=== PATIENT | male | born 1975 | race Caucasian/White ===

== ENCOUNTER 2019-06-27 02:56 | Observation (INO) ==
[2019-06-27] MEDS ORDERED: *HR* LORazepam 2 MG/ML VIAL IVP PRN (06:41)
[2019-06-27 07:43] LABS: Immature Granulocytes % 0.8 % (0-4)
[2019-06-27 07:44] LABS: Magnesium 1.7 mg/dL (1.6-2.6); Phosphorous 3.2 mg/dL (2.7-4.5); White Blood Count 9.2 K/mcL (4.3-11.1)
[2019-06-27 07:45] VITALS: BP 160/109
[2019-06-27 07:45] LABS: Alanine Aminotransferase 12 Units/L (7-52); Albumin 3.9 g/dL (3.5-5.7); Albumin/Globulin Ratio 1.8 (1.1-2.2); Alkaline Phosphatase 79 Units/L (34-104); Aspartate Amino Transferase 16 Units/L (13-39); BUN/Creatinine Ratio 9 (6-26); Basophils % 0.3 %; Bilirubin,Total 0.3 mg/dL (0.3-1.0); Blood Urea Nitrogen 7 mg/dL (6-20); Calcium 9.1 mg/dL (8.6-10.3); Carbon Dioxide 26 mEq/L (23-29); Chloride 107 mEq/L (98-107); Creatine Kinase 317 Units/L (30-223); Eosinophils # 0.1 K/mcL (0.0-0.6); Eosinophils % 0.8 %; Globulin 2.2 g/dL (2.4-3.5); Glucose 121 mg/dL (70-105); Hematocrit 31.7 % (37.5-50.1); Immature Platelets 3.5 % (1.1-6.1); Lymphocytes # 1.2 K/mcL (0.6-4.6); Mean Corpuscular HGB Conc 31.5 g/dL (31.6-35.5); Mean Corpuscular Hemoglobin 26.9 pg (28.0-33.3); Mean Corpuscular Volume 85.2 fL (83.0-100.0); Mean Platelet Volume 9.6 fL (9.4-12.4); Monocytes # 0.7 K/mcL (0.0-1.3); Monocytes % 7.8 %; Neutrophils # 7.1 K/mcL (1.6-8.9); Osmolality,Calculated 291 (280-300); Potassium 3.7 mEq/L (3.5-5.1); Red Blood Count 3.72 M/mcL (4.19-5.50); Segmented Neutrophils % 77.3 %; Sodium 141 mEq/L (136-145); Total Protein 6.1 g/dL (6.4-8.9); eGFR For African Americans > 60 (> 60); eGFR For Non-African Americans > 60 (> 60)
[2019-06-27 08:21] LABS: Anisocytosis 1+ (Not Present); Platelet Count 62 K/mcL (140-400); Platelet Estimate Decreased (Normal)
[2019-06-27] MEDS ORDERED: *HR* LORazepam 0.5 MG TABLET PO PRN (08:25)
[2019-06-27 08:30] LABS: Ethanol < 10 mg/dL (Less than 10)
[2019-06-27] MEDS ORDERED: 0.9 % Sodium Chloride 1,000 ML IVC SCH ×2 (08:30→09:00)
[2019-06-27] MEDS ORDERED: amLODIPine 5 MG TABLET PO SCH (09:00)
[2019-06-27] MEDS ORDERED: Loratadine 10 MG TABLET PO SCH (09:00)
[2019-06-27] MEDS ORDERED: Albuterol 2.5 MG/3 ML NEBULIZER IH SCH (12:00)
[2019-06-27] MEDS ORDERED: rOPINIRole 0.25 MG TABLET PO SCH (19:00)
== END 2019-06-27 12:46 | disposition left against medical advice (07) ==
LOC: 2NNU → SUATTDRO 04:23
PROVIDERS: ADMIT Internal Medicine; ATTEND Internal Medicine

== ENCOUNTER 2020-01-27 13:38 | Inpatient (IN) ==
[2020-01-27] MEDS ORDERED: CeFAZolin Syr 2,000MG/20 ML 2,000 MG/20 ML SYRINGE IVPB ONE (14:19)
[2020-01-27] MEDS ORDERED: Ringers Solution, Lactated 1,000 ML IVC SCH ×2 (14:30→20:36)
[2020-01-27] MEDS ORDERED: Gabapentin 300 MG CAPSULE PO ONE ×2 (14:35→14:45)
[2020-01-27] MEDS ORDERED: *HR* OxyCODONE ER (12 HR) 10 MG TABLET PO ONE ×2 (14:35→14:45)
[2020-01-27] MEDS ORDERED: *HR* OxyCODONE Immed Rel 5 MG TABLET PO PRN (14:39)
[2020-01-27] MEDS ORDERED: Ondansetron 4 MG/2 ML VIAL IVP PRN ×2 (14:39→20:36)
[2020-01-27] MEDS ORDERED: Vancomycin 1,000 MG VIAL ONE (14:45)
[2020-01-27] MEDS ORDERED: Famotidine 20 MG/2 ML VIAL IVP ONE (14:45)
[2020-01-27] MEDS ORDERED: Ethanol\\Acetic Acid\\Na Ace\\Ben 1,000 ML IRRIG.SOLN IR ONE (14:45)
[2020-01-27] MEDS ORDERED: Ropivacaine/PF 0.5% 30 ML VIAL ONE ×2 (16:01→18:08)
[2020-01-27] MEDS ORDERED: ROPIVACAINE/PF/NS 0.25% 1 EACH SYRINGE INTRAART ONE (16:01)
[2020-01-27] MEDS ORDERED: *HR* FentaNYL (PF) 100 MCG/2 ML VIAL ONE (16:06)
[2020-01-27] MEDS ORDERED: *HR* Propofol 200 MG/20 ML VIAL IVP ONE (16:50)
[2020-01-27] MEDS ORDERED: *HR* Succinylcholine 200 MG/10 ML VIAL IVP ONE (16:50)
[2020-01-27] MEDS ORDERED: Lidocaine -MPF 2% 2 ML VIAL ONE (16:50)
[2020-01-27] MEDS ORDERED: Lidocaine -MPF 4% 5 ML AMPUL ONE (16:57)
[2020-01-27] MEDS ORDERED: *HR* Labetalol 20 MG/4 ML SYRINGE IVP ONE (17:28)
[2020-01-27] MEDS ORDERED: Ondansetron 4 MG/2 ML VIAL ONE (17:29)
[2020-01-27] MEDS ORDERED: *HR* Enoxaparin 30 MG/0.3 ML SYRINGE SQ SCH (18:00)
[2020-01-27 18:36] LABS: Hemoglobin 15.4 g/dL (12.9-16.9)
[2020-01-27 18:38] LABS: Hematocrit 48.8 % (37.5-50.1)
[2020-01-27] MEDS ORDERED: Albuterol 2.5 MG/3 ML NEBULIZER ONE (18:53)
[2020-01-27] MEDS: *HR* Labetalol 20 MG/4 ML SYRINGE IVP PRN ×3 (18:54→19:18)
[2020-01-27] MEDS ORDERED: Albuterol 2.5 MG/3 ML NEBULIZER IH ONE (19:00)
[2020-01-27] MEDS: *HR* HYDROmorphone PF 0.5 MG/0.5 ML SYRINGE IVP PRN ×2 (19:29→19:52)
[2020-01-27] MEDS ORDERED: Sennosides 8.6 MG TABLET PO PRN (20:36)
[2020-01-27] MEDS ORDERED: Dextrose Gel 15 GM/37.5 ML TUBE PO PRN ×2 (20:36)
[2020-01-27] MEDS ORDERED: MOM Conc 10 ML UD.LIQ PO PRN (20:36)
[2020-01-27] MEDS ORDERED: D5% in Water 1,000 ML IVC PRN (20:36)
[2020-01-27] MEDS ORDERED: *HR* Dextrose 50 % in Water (Syg) 50 ML SYRINGE IVP PRN (20:36)
[2020-01-27] MEDS ORDERED: rOPINIRole 0.25 MG TABLET PO SCH (20:36)
[2020-01-27] MEDS ORDERED: Insulin LISPRO 300 UNITS/3 ML VIAL SQ SCH (21:00)
[2020-01-27] MEDS: *HR* OxyCODONE Immed Rel 5 MG TABLET PO PRN (22:19)
[2020-01-27] MEDS: Gabapentin 300 MG CAPSULE PO SCH (22:19)
[2020-01-27] MEDS ORDERED: *HR* HYDROmorphone (PF) 1 MG/ML SYRINGE IVP ONE (22:57)
[2020-01-27] MEDS ORDERED: Acetaminophen IV 1,000 MG/100 ML INFUS..BTL IVPB PRN (23:00)
[2020-01-27] MEDS: Insulin LISPRO 300 UNITS/3 ML VIAL SQ SCH (23:52)
[2020-01-28] MEDS: CeFAZolin 2 GM/120 ML BAG IVPB SCH ×2 (00:45→10:31)
[2020-01-28] MEDS: *HR* HYDROcodone/Acet 5/325 mg TABLET PO PRN ×2 (01:54→10:31)
[2020-01-28] MEDS ORDERED: *HR* Enoxaparin 30 MG/0.3 ML SYRINGE SQ SCH (06:00)
[2020-01-28] MEDS: *HR* OxyCODONE Immed Rel 5 MG TABLET PO PRN (06:30)
[2020-01-28 07:25] LABS: Hematocrit 47.9 % (37.5-50.1); Hemoglobin 15.2 g/dL (12.9-16.9)
[2020-01-28 07:36] LABS: BUN/Creatinine Ratio 20 (6-26); Blood Urea Nitrogen 17 mg/dL (6-20); Calcium 8.8 mg/dL (8.6-10.3); Carbon Dioxide 25 mEq/L (23-29); Chloride 99 mEq/L (98-107); Glucose 293 mg/dL (70-105); Osmolality,Calculated 286 (280-300); Potassium 4.7 mEq/L (3.5-5.1); Sodium 132 mEq/L (136-145); eGFR For African Americans > 60 (> 60); eGFR For Non-African Americans > 60 (> 60)
[2020-01-28] MEDS: Gabapentin 300 MG CAPSULE PO SCH (08:08)
[2020-01-28] MEDS: Insulin LISPRO 300 UNITS/3 ML VIAL SQ SCH (08:10)
[2020-01-28] MEDS ORDERED: amLODIPine 5 MG TABLET PO SCH (09:00)
[2020-01-28] MEDS ORDERED: ARIPiprazole 5 MG TABLET PO SCH (09:00)
[2020-01-28 10:43] VITALS: BP 121/86
[2020-01-28 13:27] LABS: Estimated Average Glucose 283 mg/dl
== END 2020-01-28 13:59 | disposition home health service (06) | DRG 483 ==
LOC: SAMDAY 13:38 → 3NENU 20:28 → SAMDAY 01-28 11:57 → 3NENU 01-28 13:58 → 2ANU 02-04 14:55
PROVIDERS: ADMIT Orthopaedic Surgery; ATTEND Orthopaedic Surgery

== ENCOUNTER 2020-03-30 12:01 | Inpatient (IN) ==
[2020-03-30] MEDS ORDERED: 0.9 % Sodium Chloride 1,000 ML IVC ONE ×2 (12:12→13:02)
[2020-03-30] MEDS ORDERED: *HR* HYDROmorphone (PF) 1 MG/ML SYRINGE IVP ONE ×2 (12:19→13:12)
[2020-03-30 12:48] LABS: Basophils # 0.1 K/mcL (0.0-0.2); Basophils % 0.5 %; Hematocrit 43.1 % (37.5-50.1); Hemoglobin 14.7 g/dL (12.9-16.9); Immature Granulocytes % 2.7 % (0-4); Lymphocytes # 1.9 K/mcL (0.6-4.6); Lymphocytes % 12.1 %; Mean Corpuscular HGB Conc 34.1 g/dL (31.6-35.5); Mean Corpuscular Hemoglobin 30.9 pg (28.0-33.3); Mean Corpuscular Volume 90.7 fL (83.0-100.0); Mean Platelet Volume 11.3 fL (9.4-12.4); Monocytes # 0.6 K/mcL (0.0-1.3); Monocytes % 3.6 %; Neutrophils # 12.5 K/mcL (1.6-8.9); Nucleated Red Blood Cells 0.2 /100 WBC (0); Platelet Count 127 K/mcL (140-400); Red Blood Count 4.75 M/mcL (4.19-5.50); Red Cell Distribution Width 15.9 % (11.5-14.5); Segmented Neutrophils % 81.1 %; White Blood Count 15.4 K/mcL (4.3-11.1)
[2020-03-30 13:04] LABS: Bilirubin,Urine Negative (Negative); Blood,Urine Negative (Negative); Clarity,Urine Clear (Clear); Color,Urine Colorless (Yellow); Glucose,Urine (UA) >=1000 mg/dL (Normal); Ketones,Urine Negative (Negative); Leukocyte Esterase,Urine Negative (Negative); Nitrite,Urine Negative (Negative); PH,Urine 6.5 pH Units (5.0-8.0); Protein,Urine Negative (Neg-Trace); RBC,Urine 0-3 per hpf (0-3); Specific Gravity,Urine > 1.030 (1.010-1.025); Squamous Epithelial Cell,Urine Few per hpf (None-Few); Urobilinogen,Urine Normal (Normal); WBC,Urine 0-3 per hpf (0-3)
[2020-03-30 13:09] LABS: Alanine Aminotransferase 21 Units/L (7-52); Albumin 4.3 g/dL (3.5-5.7); Albumin/Globulin Ratio 1.4 (1.1-2.2); Alkaline Phosphatase 189 Units/L (34-104); Aspartate Amino Transferase 16 Units/L (13-39); BUN/Creatinine Ratio 19 (6-26); Bilirubin,Total 0.7 mg/dL (0.3-1.0); Blood Urea Nitrogen 17 mg/dL (6-20); Calcium 9.1 mg/dL (8.6-10.3); Carbon Dioxide 24 mEq/L (23-29); Chloride 85 mEq/L (98-107); Globulin 3.1 g/dL (2.4-3.5); Glucose 683 mg/dL (70-105); Lipase 18 Units/L (11-82); Magnesium 1.8 mg/dL (1.6-2.6); Osmolality,Calculated 292 (280-300); Potassium 3.8 mEq/L (3.5-5.1); Sodium 124 mEq/L (136-145); Total Protein 7.4 g/dL (6.4-8.9); eGFR For African Americans > 60 (> 60); eGFR For Non-African Americans > 60 (> 60)
[2020-03-30] MEDS ORDERED: Insulin Human Regular 10 UNIT in 0.9 % Sodium Chloride 10 ML IV ONE (13:31)
[2020-03-30 14:41] LABS: VBG HCO3 24 mEq/L (21-27); VBG PCO2 36 mmHg (41-51); VBG PH 7.43 pH Units (7.32-7.42); VBG PO2 233 mmHg (25-50)
[2020-03-30] MEDS ORDERED: *HR* Promethazine 25 MG/ML VIAL IVP PRN (14:44)
[2020-03-30] MEDS ORDERED: Naloxone 0.4 MG/ML INJ IVP PRN (14:44)
[2020-03-30] MEDS ORDERED: *HR* HYDROcodone/Acet 5/325 mg TABLET PO PRN (14:44)
[2020-03-30] MEDS ORDERED: Acetaminophen 325 MG TABLET PO PRN (14:44)
[2020-03-30] MEDS ORDERED: D5% in Water 1,000 ML IVC PRN (14:49)
[2020-03-30] MEDS ORDERED: *HR* Dextrose 50 % in Water (Vial) 50 ML VIAL IVP PRN (14:49)
[2020-03-30] MEDS ORDERED: Dextrose Gel 15 GM/37.5 ML TUBE PO PRN ×2 (14:49)
[2020-03-30] MEDS ORDERED: Gadolinium Contrast Agent (WT Based) IV PRN (15:22)
[2020-03-30] MEDS: Insulin LISPRO 300 UNITS/3 ML VIAL SQ SCH ×3 (15:44→23:25)
[2020-03-30 15:46] LABS: BUN/Creatinine Ratio 22 (6-26); Blood Urea Nitrogen 16 mg/dL (6-20); Calcium 8.6 mg/dL (8.6-10.3); Carbon Dioxide 24 mEq/L (23-29); Chloride 94 mEq/L (98-107); Glucose 386 mg/dL (70-105); Osmolality,Calculated 283 (280-300); Potassium 3.9 mEq/L (3.5-5.1); Sodium 128 mEq/L (136-145); eGFR For African Americans > 60 (> 60); eGFR For Non-African Americans > 60 (> 60)
[2020-03-30] MEDS: *HR* OxyCODONE Immed Rel 5 MG TABLET PO PRN ×2 (17:06→23:10)
[2020-03-30] MEDS ORDERED: 0.9 % Sodium Chloride 1,000 ML IVC SCH (19:00)
[2020-03-30] MEDS ORDERED: rOPINIRole 0.25 MG TABLET PO SCH (19:00)
[2020-03-30] MEDS ORDERED: Insulin DETEMIR 100 UNIT/ML X5UNITS SQ SCH (21:00)
[2020-03-31 05:25] LABS: Eosinophils % 0.3 %; Mean Corpuscular HGB Conc 34.2 g/dL (31.6-35.5); Nucleated Red Blood Cells 0.2 /100 WBC (0); Red Cell Distribution Width 16.3 % (11.5-14.5)
[2020-03-31 05:27] LABS: Basophils # 0.1 K/mcL (0.0-0.2); Basophils % 0.5 %; Hematocrit 36.5 % (37.5-50.1); Hemoglobin 12.5 g/dL (12.9-16.9); Immature Granulocytes % 2.9 % (0-4); Immature Platelets 5.7 % (1.1-6.1); Lymphocytes # 2.1 K/mcL (0.6-4.6); Lymphocytes % 18.3 %; Mean Corpuscular Hemoglobin 31.2 pg (28.0-33.3); Mean Platelet Volume 10.6 fL (9.4-12.4); Monocytes # 0.5 K/mcL (0.0-1.3); Monocytes % 4.7 %; Neutrophils # 8.4 K/mcL (1.6-8.9); Red Blood Count 4.01 M/mcL (4.19-5.50); Segmented Neutrophils % 73.3 %; White Blood Count 11.5 K/mcL (4.3-11.1)
[2020-03-31 05:40] LABS: BUN/Creatinine Ratio 35 (6-26); Blood Urea Nitrogen 23 mg/dL (6-20); Calcium 8.3 mg/dL (8.6-10.3); Carbon Dioxide 23 mEq/L (23-29); Chloride 99 mEq/L (98-107); Glucose 209 mg/dL (70-105); Osmolality,Calculated 286 (280-300); Potassium 3.8 mEq/L (3.5-5.1); Sodium 133 mEq/L (136-145); eGFR For African Americans > 60 (> 60); eGFR For Non-African Americans > 60 (> 60)
[2020-03-31] MEDS: Insulin LISPRO 300 UNITS/3 ML VIAL SQ SCH ×2 (05:41→09:19)
[2020-03-31] MEDS: *HR* OxyCODONE Immed Rel 5 MG TABLET PO PRN ×2 (05:41→11:55)
[2020-03-31 06:25] LABS: Platelet Count 83 K/mcL (140-400)
[2020-03-31] MEDS ORDERED: ARIPiprazole 5 MG TABLET PO SCH (09:00)
[2020-03-31] MEDS ORDERED: amLODIPine 5 MG TABLET PO SCH (09:00)
[2020-03-31] MEDS ORDERED: traZODone 50 MG TABLET PO SCH (09:00)
[2020-03-31] MEDS ORDERED: Aspirin Enteric Coated 81 MG Tablet PO SCH (09:00)
[2020-03-31] MEDS ORDERED: predniSONE 20 MG TABLET PO SCH (09:00)
[2020-03-31] MEDS ORDERED: Budesonide/Formoterol 80/4.5 1 PUFF INH IH SCH (10:00)
[2020-03-31 10:58] VITALS: BP 142/91
[2020-03-31] MEDS ORDERED: Acyclovir 200 MG CAPSULE PO SCH (21:00)
== END 2020-03-31 12:14 | disposition home or self-care (01) | DRG 638 ==
LOC: 2NNU 12:01 → EMEROOARM 12:01 → SUATTDRO 13:50 → 2NNU 15:06
PROVIDERS: ADMIT Internal Medicine; ATTEND Internal Medicine